=== PATIENT | female | born 1995 | race Caucasian/White ===

== ENCOUNTER → 2016-11-01 | Outpatient (CLI) | payer BC ==
--- NOTE | 2016-11-01 23:51 | MR ---
History pain and swelling. Limited range of motion. Comparison none. TECHNIQUE: Multiplanar multiecho imaging of the left wrist was performed with no contrast. Findings. The carpal bones have normal signal pattern. There is no evidence of edema. Distal radius and ulna ar e intact. Condylar cartilage appears normal. The proximal metacarpals appear intact. The flexor and e xtensor tendons of the wrist appear intact. There is no pathologic fluid collection in the soft tissu es. I see no focal bony destructive process. There is slight prominence of the synovial fluid of the wrist joint and carpal bones. CONCLUSION: No fracture. Normal joint spaces. No focal soft tissue abnormality seen. There is possibly slight inc reased synovial fluid could relate to mild synovitis.
== END | disposition home or self-care (01) ==
LOC: RADMRIMAIN 17:06
PROVIDERS: ATTEND Orthopaedic Surgery
DX: M25.532 Pain in left wrist (principal)

== ENCOUNTER 2018-12-20 10:01 | Emergency (ER) | payer BC ==
[2018-12-20] MEDS ORDERED: ACETAMINOPHEN TAB 325 MG TAB PO STA (10:37)
--- NOTE | 2018-12-20 10:38 | ED ---
General Adult HPI - General Chief complaint: Chest Pain Stated complaint: chest pain, palpitations Time Seen by Provider: 12/20/18 10:09 Source: patient, RN notes reviewed Mode of arrival: wheelchair Limitations: no limitations - History of Present Illness Initial comments: 22-year-old female presents to the emergency department for a chief complaint of chest pain times one day. Patient states this started last night. Patient states she has had a productive cough with clear mucus for the past 2 weeks. She states she has had significant amount of congestion as well. Patient denies fevers or chills. She states that yesterday she started to feel like her heart was racing. Patient does state the pain is worse when coughing. She also states it is worse when she takes a deep breath. Patient also states she has had a baseline mild shortness of breath since she has become sick. Patient has no other complaints at this time including abdominal pain, nausea or vomiting, headache, or visual changes. - Related Data Home Medications Medication Instructions Recorded Confirmed Ascorbic Acid [Vitamin C] 1,000 mg PO DAILY 12/20/18 12/20/18 Cholecalciferol [Vitamin D3] 400 unit PO DAILY 12/20/18 12/20/18 Multivitamins, Thera [Multivitamin 1 tab PO DAILY 12/20/18 12/20/18 (formulary)] Previous Rx's Medication Instructions Recorded predniSONE 50 mg PO DAILY #5 tablet 12/20/18 Allergies Allergy/AdvReac Type Severity Reaction Status Date / Time No Known Allergies Allergy Verified 12/20/18 11:00 Review of Systems ROS Statement: Those systems with pertinent positive or pertinent negative responses have been documented in the HPI. ROS Other: All systems not noted in ROS Statement are negative. Past Medical History Past Medical History: No Reported History History of Any Multi-Drug Resistant Organisms: None Reported Past Surgical History: No Surgical Hx Reported Past Psychological History: No Psychological Hx Reported Smoking Status: Never smoker Past Alcohol Use History: None Reported Past Drug Use History: None Reported General Exam Limitations: no limitations General appearance: alert, in no apparent distress Head exam: Present: atraumatic, normocephalic, normal inspection Eye exam: Present: normal appearance, PERRL, EOMI. Absent: scleral icterus, conjunctival injection, periorbital swelling ENT exam: Present: normal exam, mucous membranes moist Neck exam: Present: normal inspection, full ROM. Absent: tenderness, meningismus, lymphadenopathy Respiratory exam: Present: normal lung sounds bilaterally, chest wall tenderness (significant chest wall tenderness, ). Absent: respiratory distress, wheezes, rales, rhonchi, stridor Cardiovascular Exam: Present: regular rate, normal rhythm, normal heart sounds. Absent: systolic murmur, diastolic murmur, rubs, gallop, clicks Neurological exam: Present: alert, oriented X3, CN II-XII intact Psychiatric exam: Present: normal affect, normal mood Course Vital Signs 12/20/18 12/20/18 12/20/18 10:05 11:17 11:20 Temperature 98.4 F 97.2 F L Pulse Rate 98 87 Respiratory 18 16 Rate Blood Pressure 147/103 114/71 O2 Sat by Pulse 98 92 L 98 Oximetry EKG Findings - EKG Comments: EKG Findings:: Normal sinus rhythm, ventricular rate 90, WV interval 134, QTC 408 Medical Decision Making - Medical Decision Making 22-year-old female presents to the emergency department for a chief complaint of pleuritic chest pain. Pain is worsened when coughing and taking a deep breath. Patient states it is also worse when pressing on the chest. Exam reveals no murmurs. Pain is reproducible. Chest x-ray shows no acute process. Influenza is negative. Although I suspect chest pain is related to pleurisy as patient has been coughing as well as chest wall pain given that pain is reproducible to palpation I did draw a d-dimer as pain is pleuritic in nature. This is negative. EKG does not show any abnormalities. At this time patient will be treated for bronchitis. She will be given steroids. She will take Motrin for pain. She'll follow up with primary care in 1-2 days or return if she has any worsening symptoms. - Lab Data Lab Results 12/20/18 12/20/18 12/20/18 Range/Units 10:30 10:30 10:30 D-Dimer (<0.60) mg/L FEU Urine Color Yellow Urine Appearance Clear (Clear) Urine pH 5.5 (5.0-8.0) Ur Specific [place] 1.013 (1.001-1.035) Urine Protein Negative (Negative) Urine Glucose (UA) Negative (Negative) Urine Ketones Negative (Negative) Urine Blood Small H (Negative) Urine Nitrite Negative (Negative) Urine Bilirubin Negative (Negative) Urine Urobilinogen <2.0 (<2.0) mg/dL Ur Leukocyte Esterase Negative (Negative) Urine RBC 1 (0-5) /hpf Urine WBC 2 (0-5) /hpf Ur Squamous Epith Cells 2 (0-4) /hpf Urine Bacteria Rare H (None) /hpf Urine Mucus Rare H (None) /hpf Urine HCG, Qual Not Detected (Not Detectd) Influenza Type A RNA Not Detected (Not Detectd) Influenza Type B (PCR) Not Detected (Not Detectd) 12/20/18 Range/Units 11:50 D-Dimer <0.17 (<0.60) mg/L FEU Urine Color Urine Appearance (Clear) Urine pH (5.0-8.0) Ur Specific [place] (1.001-1.035) Urine Protein (Negative) Urine Glucose (UA) (Negative) Urine Ketones (Negative) Urine Blood (Negative) Urine Nitrite (Negative) Urine Bilirubin (Negative) Urine Urobilinogen (<2.0) mg/dL Ur Leukocyte Esterase (Negative) Urine RBC (0-5) /hpf Urine WBC (0-5) /hpf Ur Squamous Epith Cells (0-4) /hpf Urine Bacteria (None) /hpf Urine Mucus (None) /hpf Urine HCG, Qual (Not Detectd) Influenza Type A RNA (Not Detectd) Influenza Type B (PCR) (Not Detectd) Disposition Clinical Impression: Bronchitis Disposition: HOME SELF-CARE Condition: Good Instructions (If sedation given, give patient instructions): Chest Pain (ED), Acute Bronchitis (ED) Additional Instructions: Please take steroid as directed. Continue to take Motrin. Please follow-up with primary care in 1-2 days. Please return here to the emergency department if you have any worsening symptoms. Prescriptions: predniSONE 50 mg PO DAILY #5 tablet Is patient prescribed a controlled substance at d/c from ED?: No Referrals: Hammad Tapia MD [Primary Care Provider] - 1-2 days Time of Disposition: 12:53
[2018-12-20 10:52] LABS: Appearance,Urine Clear (Clear); Bacteria,Urine Rare /hpf; Bilirubin,Urine Negative (Negative); Blood,Urine Small (Negative); Color,Urine Yellow; Glucose,Urine (UA) Negative (Negative); Ketones,Urine Negative (Negative); Leukocyte Esterase,Urine Negative (Negative); Mucus,Urine Rare /hpf; Nitrite,Urine Negative (Negative); PH, Urine 5.5 (5.0-8.0); Protein,Urine Negative (Negative); RBC,Urine 1 /hpf (0-5); Specific Gravity,Urine 1.013 (1.001-1.035); Squamous Epithelial Cell,Urine 2 /hpf (0-4); Urobilinogen,Urine <2.0 mg/dL (<2.0); WBC,Urine 2 /hpf (0-5)
[2018-12-20] MEDS ORDERED: IBUPROFEN 600 MG TAB PO STA (10:56)
[2018-12-20] MEDS ORDERED: predniSONE 50 MG TAB PO STA (10:56)
--- NOTE | 2018-12-20 11:12 | XR ---
EXAMINATION TYPE: XR chest 2V DATE OF EXAM: 12/20/2018 COMPARISON: NONE HISTORY: Chest pain for 24 hours. TECHNIQUE: Frontal and lateral views of the chest are obtained. FINDINGS: There is no focal air space opacity, pleural effusion, or pneumothorax seen. The cardiac silhouette size is within normal limits. The osseous structures are intact. IMPRESSION: No acute process.
[2018-12-20 13:26] VITALS: BP 116/72; PULSE 84; RESP 18; TEMP 98
== END 2018-12-20 13:24 | disposition home or self-care (01) ==
LOC: EC 10:01
DX: J40 Bronchitis, not specified as acute or chronic (principal)
CPT/HCPCS: 36415; 93005; 85379; 81001; 81025; 87502; 71046; 99284; J7512

== ENCOUNTER → 2020-04-21 | Outpatient (CLI) | payer OTHER ==
[2020-04-21 12:55] VITALS: BP 118/83; PULSE 83; RESP 18; TEMP 98.2
--- NOTE | 2020-04-21 14:12 | P.HPOB ---
History of Present Illness H&P Date: 04/21/20 Chief Complaint: Patient is here for her routine gynecologic exam. This is a 24-year-old G0 with an LMP of 03/30/2020. The patient is here to establish with this office. She has a ParaGard IUD in place which was inserted in 2009. She states she has done well with this IUD for control. Menses are regular every month with 2 days of slightly heavier flow where she changes her protection up to every 2 hours. She did donate eggs up to 2018 and did this for about 2 years. She did take ovarian stimulation medications at that time and did have a transvaginal egg retrievals. She has been experiencing some constipation and some bloating. She is concerned about the possibility of ovarian cancer since a [id number]-cv-nve recently was diagnosed with ovarian cancer at a relatively young age. She states she does feel cold at times and also has been having some weight fluctuations of plus or minus 10-15 pounds. Review of Systems Her weight has fluctuated by 10-15 pounds and has ranged from 162-180 in recent months. She denies respiratory or cardiac problems. GI: Constipation. 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 She states she believes she did complete the HPV vaccination series. History of Any Multi-Drug Resistant Organisms: None Reported Past Surgical History: Orthopedic Surgery Additional Past Surgical History / Comment(s): Wrist surgery. Past Psychological History: No Psychological Hx Reported Smoking Status: Never smoker Past Alcohol Use History: Occasional (0-2 per month) Past Drug Use History: None Reported Additional History: The patient is single and has been with her boyfriend since 2012. She does live with him. 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 - Past Family History Mother Family Medical History: Hyperlipidemia, Hypertension Additional Family Medical History / Comment(s): Great-grandmother had breast cancer. Father Family Medical History: Diabetes Mellitus, Hyperlipidemia, Hypertension Medications and Allergies Home Medications Medication Instructions Recorded Confirmed Type Cholecalciferol [Vitamin D3] 400 unit PO DAILY 12/20/18 04/21/20 History Multivitamins, Thera [Multivitamin 1 tab PO DAILY 12/20/18 04/21/20 History (formulary)] Allergies Allergy/AdvReac Type Severity Reaction Status Date / Time latex AdvReac Itching Unverified 04/21/20 12:49 Exam Vital Signs Temp Pulse Resp BP Pulse Ox 04/21/20 12:52 98.2 F 83 18 118/83 99 Intake and Output 04/20/20 04/21/20 04/21/20 22:59 06:59 14:59 Other: Weight 77.111 kg Height 5 feet 4 inches, weight 170 pounds, BMI 29.2. This is a well-developed well-nourished white female who is alert and oriented times 3 in no acute distress. HEENT: Within normal limits. NECK: Supple without mass or thyromegaly. CHEST AND LUNGS: Clear to auscultation. HEART: Regular rate and rhythm. BREASTS: Are without mass or discharge. AXILLARY EXAM: Negative for adenopathy. BACK: Negative for CVA tenderness. ABDOMEN: Soft, minimal epigastric tenderness, without palpable masses. The abdomen is nondistended. PELVIC EXAM: Normal external genitalia. Cervix and vagina appear normal. An IUD string protrudes from the cervix by approximately 2 cm. There is no cervical motion tenderness. There is no unusual discharge. There is no evidence of prolapse. The uterus is midposition, nongravid size and nontender. There are no palpable adnexal masses or tenderness. RECTAL EXAM: Deferred. EXTREMITIES: Nontender. IMPRESSION: 1. 24-year-old female with normal gynecologic exam. 2. Recent abdominal bloating. This most likely represents GI changes such as GI gas or constipation. Less likely would be ovarian neoplasm as a cause for the abdomen. PLAN: 1. Pap smear was performed. 2. Self breast awareness was discussed with the patient. 3. The patient is interested in having a thyroid blood test for screening since she has experience some weight fluctuations, some cold intolerance and constipation. 4. Pelvic ultrasound will be scheduled because of the abdominal bloating and her anxiety regarding ovarian cancer. The order slip was given to the patient for this. 5. She understands her ParaGard is recommended to be replaced after 10 years of use. We discussed different options including control pills as well as different types of IUDs. She is interested in a progestin coated IUD because of slightly heavier periods on days 3 and 4. The patient will be referred to Dr. Carter for IUD replacement with a Mirena IUD. 6. She was advised to return in one year for her annual well woman exam.
--- NOTE | 2020-04-28 18:07 | P.PN ---
Progress Note - Text Progress Note Date: 04/28/20 OUTPATIENT FOLLOW-UP NOTE TEST(S)/RESULTS: Pap smear from 04/21/2020 was negative. METHOD OF NOTIFICATION: A message with this result was left on the patient's voicemail. PATIENT COMMENTS: DIAGNOSIS: Negative Pap smear. DISCUSSION: The patient was asked to call to make an appointment for the re commended pelvic ultrasound. She was also advised to have the TSH blood test drawn. She was also instructed to call if she has questions about these tests. PLAN: As above.
== END | disposition home or self-care (01) ==
LOC: WWCWWP 12:23
PROVIDERS: ATTEND Obstetrics & Gynecology
DX: Z53.9 Procedure and treatment not carried out, unspecified reason (principal)

== ENCOUNTER → 2021-05-05 | Outpatient (CLI) | payer OTHER ==
[2021-05-05 10:15] VITALS: BP 114/78; PULSE 90; RESP 16; TEMP 97.9
--- NOTE | 2021-05-05 11:18 | P.HPOB ---
History of Present Illness H&P Date: 05/05/21 Chief Complaint: The patient is here for her routine gynecologic exam. This is a 25-year-old G0 with an LMP of 04/05/2021. The patient has a ParaGard IUD in place which she states was inserted in 2009. She did see Dr. Carter regarding changing the IUD and his plan was to insert a Kyleena IUD. She was instructed to make an appointment on her menstrual period, but she did not do this. She is without gynecologic complaints. 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 I had previously recommended a pelvic ultrasound because of the abdominal bloating that she was having. She did not have it done. She still has occasional bloating and constipation. She thinks the bloating seems to be worse when she eats dairy products and therefore thinks she may have some lactose intolerance. Review of Systems The patient has gained 10 pounds over the last year. She denies respiratory problems. Cardiac: Occasional palpitation. GI: Occasional constipation and bloating as in the HPI. 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 She states she believes she did complete the HPV vaccination series. History of Any Multi-Drug Resistant Organisms: None Reported Past Surgical History: Orthopedic Surgery Additional Past Surgical History / Comment(s): Wrist surgery. Past Psychological History: No Psychological Hx Reported Smoking Status: Never smoker Past Alcohol Use History: Occasional Past Drug Use History: None Reported - Past Family History Mother Family Medical History: Hyperlipidemia, Hypertension Additional Family Medical History / Comment(s): Great-grandmother had breast cancer. Father Family Medical History: Diabetes Mellitus, Hyperlipidemia, Hypertension Medications and Allergies Home Medications Medication Instructions Recorded Confirmed Type Cholecalciferol [Vitamin D3] 400 unit PO DAILY 12/20/18 05/05/21 History Multivitamins, Thera [Multivitamin 1 tab PO DAILY 12/20/18 05/05/21 History (formulary)] Ascorbic Acid [Vitamin C] 1,000 mg PO DAILY 05/05/21 05/05/21 History Allergies Allergy/AdvReac Type Severity Reaction Status Date / Time Penicillins Allergy Unknown Unverified 05/05/21 10:16 Childhood latex AdvReac Itching Unverified 05/05/21 10:16 Exam Vital Signs Temp Pulse Resp BP Pulse Ox 05/05/21 10:10 97.9 F 90 16 114/78 100 Intake and Output 05/04/21 05/05/21 05/05/21 22:59 06:59 14:59 Other: Weight 81.647 kg Height 5 feet 3 inches, weight 180 pounds, BMI 31.4. This is a well-developed well-nourished white female who is alert and oriented times 3 in no acute distress. HEENT: Within normal limits. NECK: Supple without mass or thyromegaly. CHEST AND LUNGS: Clear to auscultation. HEART: Regular rate and rhythm. BREASTS: Are without mass or discharge. AXILLARY EXAM: Negative for adenopathy. BACK: Negative for CVA tenderness. ABDOMEN: Soft, nontender, without palpable masses. PELVIC EXAM: Normal external genitalia. Cervix and vagina appear normal. The IUD string protrudes from the cervix by about 1.5 cm. There is no unusual discharge. There is no cervical motion tenderness. There is no evidence of prolapse. The uterus is midposition, nongravid size and nontender. There are no palpable adnexal masses or tenderness. RECTAL EXAM: Deferred. EXTREMITIES: Nontender. IMPRESSION: 1. 25-year-old female with ParaGard IUD in place with normal gynecologic exam. 2. Contemplating attempting in the next 2 years. 3. Intermittent bloating with history of ovulation induction when she was an egg donor. This may slightly increase the risk for ovarian cancer. PLAN: 1. Pap smear was deferred since she had a normal one on 04/21/2020. 2. Self breast awareness was discussed with the patient. 3. I have recommended that she have a pelvic ultrasound done because of her bloating symptoms and history of ovulation induction. The order slip was given to the patient. 4. We have discussed control options and since she is talking about trying to get in the relatively near future, inserted a new IUD may not be the best option. We have discussed how her ParaGard IUD probably still has contraception effects after 10 years, but may be decreased compared to the first 10 years of use. We have also discussed the option of going on control pills until she wants to attempt . She will let me know when she wants me to remove the ParaGard IUD. I have also recommended that she take a daily multivitamin with folic acid. 5. She was advised to return in one year for her annual well woman exam and as needed.
== END ==
LOC: WWCWWP 10:05
PROVIDERS: ATTEND Obstetrics & Gynecology
DX: Z53.9 Procedure and treatment not carried out, unspecified reason (principal)

== ENCOUNTER → 2022-07-27 | Outpatient (CLI) | payer OTHER ==
[2022-07-27 11:33] VITALS: BP 127/84; PULSE 94; RESP 17; TEMP 98.3
--- NOTE | 2022-07-27 12:34 | P.HPOB ---
History of Present Illness H&P Date: 07/27/22 Chief Complaint: The patient is here for her routine gynecologic exam. This is a 26-year-old G0 with an LMP of 07/22/2022. The patient presented with a ParaGard IUD in place. She would like to attempt in the upcoming year and is requesting to have the IUD removed. She states she has not had any problems with the ParaGard IUD. Menstrual periods have been regular every month with normal flow. I had previously recommended a pelvic ultrasound because of abdominal bloating. She states she is not having any unusual bloating, but she does have occasional constipation. She does have bowel movements at least every 2 days typically. Review of Systems She has lost 2 pounds over the past year. She denies respiratory or cardiac problems. GI: Occasional constipation. 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 She states she believes she did complete the HPV vaccination series. History of Any Multi-Drug Resistant Organisms: None Reported Past Surgical History: Orthopedic Surgery Additional Past Surgical History / Comment(s): Wrist surgery. Past Psychological History: No Psychological Hx Reported Smoking Status: Never smoker Past Alcohol Use History: Occasional (0-2 per month) Past Drug Use History: None Reported Additional History: She is single and has been with her boyfriend since 2012. They live together. 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 - Past Family History Mother Family Medical History: Hyperlipidemia, Hypertension Additional Family Medical History / Comment(s): Kidney stones. Great-grandmother had breast cancer. She denies known family history of defects or mental retardation. Father Family Medical History: Diabetes Mellitus, Hyperlipidemia, Hypertension Additional Family Medical History / Comment(s): Kidney stones. Medications and Allergies Home Medications Medication Instructions Recorded Confirmed Type Cholecalciferol [Vitamin D3] 400 unit PO DAILY 12/20/18 07/27/22 History Multivitamins, Thera [Multivitamin 1 tab PO DAILY 12/20/18 07/27/22 History (formulary)] Ascorbic Acid [Vitamin C] 1,000 mg PO DAILY 05/05/21 07/27/22 History Allergies Allergy/AdvReac Type Severity Reaction Status Date / Time Penicillins Allergy Unknown Unverified 07/27/22 11:23 Childhood latex AdvReac Itching Unverified 07/27/22 11:23 Exam Vital Signs Temp Pulse Resp BP Pulse Ox 07/27/22 11:31 98.3 F 94 17 127/84 98 Intake and Output 07/26/22 07/27/22 07/27/22 22:59 06:59 14:59 Other: Weight 80.739 kg Height 5 feet 3 inches, weight 178 pounds, BMI 31.5. This is a well-developed well-nourished white female who is alert and oriented times 3 in no acute distress. HEENT: Within normal limits. NECK: Supple without mass or thyromegaly. CHEST AND LUNGS: Clear to auscultation. HEART: Regular rate and rhythm. BREASTS: Are without mass or discharge. AXILLARY EXAM: Negative for adenopathy. BACK: Negative for CVA tenderness. ABDOMEN: Soft, nontender, without palpable masses. PELVIC EXAM: Normal external genitalia. Cervix and vagina appear normal. The IUD string protruded from the cervix approximately 2 cm. There is no unusual discharge. There is no evidence of prolapse. The uterus is midposition, nongravid size and nontender. There are no palpable adnexal masses or tenderness. RECTAL EXAM: Deferred. EXTREMITIES: Nontender. Procedure: The patient requested removal of her IUD since she does want to attempt in the upcoming year. We discussed possible risks including unpredictable bleeding, or infrequently laceration of the uterus or cervix. All questions were answered. The IUD was removed without difficulty. The patient tolerated the procedure well. There was minimal blood loss. IMPRESSION: 1. 26-year-old female who has done well with a ParaGard IUD, status post IUD removal today and plans to attempt in the near future. 2. Normal gynecologic exam. PLAN: 1. Pap smear was performed. This will be cytology only. 2. Self breast awareness was discussed with the patient. We have also discussed symptoms associated with inflammatory breast cancer. 3. I have recommended that she avoid until she has had a normal menstrual period. She states she will plan to use condoms until then and until she wants to actively attempt . Preconception planning was discussed. I have stressed the importance of continuing a daily multivitamin with folic acid she will keep a menstrual calendar. If she does miss a period, she will take a test and be careful with intake of alcohol and medications. 4. We have discussed the importance of adequate fiber to help prevent problems with constipation. 5. She was advised to return in one year for her annual well woman exam. She'll also call if problems or if . She was also instructed to call if she desires to be restarted on control such as oral contraception.
== END | disposition home or self-care (01) ==
LOC: WWCWWP 11:18
PROVIDERS: ATTEND Obstetrics & Gynecology
DX: Z53.9 Procedure and treatment not carried out, unspecified reason (principal)

== ENCOUNTER → 2023-08-08 | Outpatient (CLI) | payer OTHER ==
[2023-08-08 13:45] VITALS: BP 119/85; PULSE 86; RESP 17; TEMP 98.2
--- NOTE | 2023-08-08 16:48 | P.HPOB ---
History of Present Illness H&P Date: 08/08/23 Chief Complaint: The patient is to for her routine gynecologic exam. This is a 27-year-old G0 with an LMP of 07/12/2023. The patient had her IUD removed last year since she was planning to attempt . She and her boyfriend have been using withdrawal for control since they currently do not want to actively attempt . She was diagnosed with MS during the past year and is now taking Kesimpta injections. She is without gynecologic complaints. Her last Pap smear on 07/27/2022 showed ASCUS. The plan was to repeat the Pap smear after 1 year. Review of Systems Weight has been stable. She denies respiratory, cardiac, or GI problems. Neurologic: She has had been having various neurologic symptoms including lower body paresthesias. She since has been diagnosed with MS and her current medication seems to help with some of the symptoms Past Medical History Past Medical History: Musculoskeletal Disorder, Neurologic Disorder Additional Past Medical History / Comment(s): Multiple sclerosis. 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 She states she believes she did complete the HPV vaccination series. History of Any Multi-Drug Resistant Organisms: None Reported Past Surgical History: Orthopedic Surgery Additional Past Surgical History / Comment(s): Wrist surgery. Past Psychological History: Anxiety Smoking Status: Never smoker Past Alcohol Use History: None Reported Past Drug Use History: None Reported Additional History: She is single and has been with her boyfriend since 2012. They live together. She is currently unemployed and was on a prolonged medical leave because of her multiple sclerosis diagnosis. - Past Family History Mother Family Medical History: Hyperlipidemia, Hypertension Additional Family Medical History / Comment(s): Kidney stones. Psoriatic arthritis. Great-grandmother had breast cancer. She denies known family history of defects or mental retardation. Father Family Medical History: Diabetes Mellitus, Hyperlipidemia, Hypertension Additional Family Medical History / Comment(s): Kidney stones. Medications and Allergies Home Medications Medication Instructions Recorded Confirmed Type Cholecalciferol [Vitamin D3] 400 unit PO DAILY 12/20/18 08/08/23 History Baclofen [Lioresal] 20 mg PO TID 08/08/23 08/08/23 History Docusate [Colace] 100 mg PO DIRECTED PRN 08/08/23 08/08/23 History Gabapentin 600 mg PO TID 08/08/23 08/08/23 History Magnesium 250 mg PO DAILY 08/08/23 08/08/23 History Ofatumumab [Kesimpta Pen] 1 injection INJ QMONTHLY 08/08/23 08/08/23 History Vitamin B Complex 1 cap PO DAILY 08/08/23 08/08/23 History Allergies Allergy/AdvReac Type Severity Reaction Status Date / Time Penicillins Allergy Unknown Unverified 08/08/23 13:26 Childhood latex AdvReac Itching Unverified 08/08/23 13:26 Exam Vital Signs Temp Pulse Resp BP Pulse Ox 08/08/23 13:32 98.2 F 86 17 119/85 97 Intake and Output 08/08/23 08/08/23 08/08/23 06:59 14:59 22:59 Other: Weight 79.832 kg Height 5 feet 3 inches, weight 176 pounds, BMI 31.2. This is a well-developed well-nourished white female who is alert and oriented times 3 in no acute distress. HEENT: Within normal limits. NECK: Supple without mass or thyromegaly. CHEST AND LUNGS: Clear to auscultation. HEART: Regular rate and rhythm. BREASTS: Are without mass or discharge. AXILLARY EXAM: Negative for adenopathy. BACK: Negative for CVA tenderness. ABDOMEN: Soft, nontender, without palpable masses. PELVIC EXAM: Normal external genitalia. Cervix and vagina appear normal, but there are 2 mucosal growths in the left fornix between the vaginal wall and the base of the cervix. One measures approximately 1 x 1 cm and the other one slightly posterior to the first measures approximately 7 x 7 mm. They are at approximately the 1:00 and 2:00 positions of the cervix. A have a benign appearance and are mobile on a stalk. There color a similar to the surrounding vaginal mucosa. There is no unusual discharge. There is no evidence of prolapse. The uterus is midposition, nongravid size and nontender. There are no palpable adnexal masses or tenderness. RECTAL EXAM: Deferred. EXTREMITIES: Nontender. IMPRESSION: 1. 27-year-old female with pericervical mucosal growths measuring approximately 1 cm and 7 mm. Differential diagnosis will include benign mucosal growths as well as condyloma. 2. The patient is currently using withdrawal for control. 3. Recent diagnosis of multiple sclerosis and is currently on Kesimpta. 4. Her plans on possibly attempting have been put on hold because of her diagnosis of multiple sclerosis. 5. Previous Pap smear showed ASCUS. PLAN: 1. Pap smear cotest was performed. 2. Self breast awareness was discussed. 3. We have had a long discussion regarding possibly attempting in the future. Her diagnosis of multiple sclerosis with her current medication now complicates her decision of whether to attempt . We have discussed how the medication has some potential risks and the recommendation is to actively prevent for at least 6 months after the medication is discontinued. I recommended that she actively prevent and we have discussed possible options including going back on the IUD or starting oral contraception. At this time I have recommended at least using condoms every single time. She states she will consider these options. 4. If the Pap smear is abnormal, we may be referring her for colposcopic examination of the cervix. If that is the case we can also ask the person who will do the colposcopy possibly remove the pericervical growths. If Pap smear is negative and if colposcopy is not indicated, we will consider setting up a time for the removal of the growths or at least biopsying the growths. 5. I have recommended taking a daily multivitamin with folic acid as well as considering more effective options for control. She should take whatever precautions are necessary to avoid at this time. 6. We have also discussed possible preconception options such as referral to a perinatologist to further discuss possible in the future with her multiple sclerosis diagnosis and medications used for multiple sclerosis. She will consider this. 7. She is also asking whether Kesimpta increases the risk for breast cancer and should breast cancer screening be started earlier in her situation. I am not fully aware of the risks with breast cancer. We have discussed how medications that affect the immune system may affect the body's ability to fight or prevent cancers. She can asked this question to the neurologist who is prescribing medication. 8. She was advised to return in one year for her annual well woman exam and as needed.
== END ==
LOC: WWCWWP 13:19
PROVIDERS: ATTEND Obstetrics & Gynecology
DX: G35 Multiple sclerosis (principal); Z80.3 Family history of malignant neoplasm of breast; Z88.0 Allergy status to penicillin; Z87.39 Personal history of other diseases of the musculoskeletal system and connective tissue; Z86.69 Personal history of other diseases of the nervous system and sense organs; Z91.040 Latex allergy status; Z79.899 Other long term (current) drug therapy

== ENCOUNTER → 2023-09-13 | Day surgery (SDC) | payer OTHER ==
[2023-09-13 12:40] VITALS: BP 124/82; PULSE 89; RESP 18; TEMP 98.3
--- NOTE | 2023-09-13 13:40 | P.PCN ---
Date of Procedure: 09/13/23 Preoperative Diagnosis: Pericervical vaginal growths Postoperative Diagnosis: Same Procedure(s) Performed: Removal of the pericervical vaginal growths Anesthesia: none Surgeon: Ashutosh Campbell Estimated Blood Loss (ml): 1 Pathology: other (Pericervical vaginal growths(2)) Condition: stable Disposition: same day Indications for Procedure: This was a 27-year-old female who was found to have 2 small growths in the left vaginal fornix at the base of the cervix on her routine gynecologic exam. Operative Findings: There were 2 mucosal growths in the left vaginal fornix at the base of the cervix. One was at the 2 o'clock position and measured approximately 1 x 1 cm. The second one was at the 3 o'clock position and measured approximately 7 x 7 mm. Description of Procedure: We had a discussion regarding the procedure and this included possible risks and complications. These included the possibility of bleeding, infection and damage to surrounding structures. All questions were answered. The patient did have a question about possible vaginal prolapse since she notices slight bulge at the vaginal opening when she was having a bowel movement. The preprocedure vital signs were: The pressure 124/82, height 5 feet 4 inches, weight 173 pounds, temperature 98.3, pulse 89, and pulse oximeter was 100%. The patient was initially examined further evaluate the possible prolapse. There is no evidence of cystocele or uterine prolapse. There is a very slight rectal bulge in the vagina consistent with a grade 1 rectocele. The uterus is mid positioned, nongravid size, and nontender. There are no palpable adnexal masses or tenderness. Rectal exam did confirm a very small rectocele. My gloves were changed and attention was then turned to the procedure. The patient was in the lithotomy position and a speculum was inserted into the vagina. The growths in the left vaginal fornix were again seen. The cervix and vagina were prepped with Betadine solution. A posterior forcep was then used to grasp the larger growth at the 2 o'clock position and this was excised at its base without difficulty. The smaller lesion at the 3 o'clock position was also excised in a similar fashion. There was small bleeding from the sites that were made hemostatic with a silver nitrate stick and a small amount of Monsel's solution. The patient tolerated the procedure well. This measured blood loss was 1 mL. The post procedure blood pressure was 135/85. Pulse was 89 and the pulse oximeter was 99%. The patient was discharged home in stable condition. The patient was instructed to call if problems such as heavy vaginal bleeding, unusual pain, fever, or problems. The 2 specimens were sent separately for pathological evaluation. The patient was also instructed to avoid all sexual activity for 2 weeks and until all bleeding and discharge has stopped. She was also advised not to run for exercise at this time. We have discussed the small rectocele. I recommended that she avoid holding stool longer than necessary and she should also avoid constipation and bearing down, if possible. The ACOG FAQ handout on pelvic relaxation was given to the patient. No intervention is needed at this time.
--- NOTE | 2023-09-19 14:03 | P.PN ---
Progress Note - Text Progress Note Date: 09/19/23 OUTPATIENT FOLLOW-UP NOTE TEST(S)/RESULTS: Pathology results from the posterior vaginal growths revealed 2 benign fibroepithelial polyps. METHOD OF NOTIFICATION: A message with this result was left on the patient's voicemail. PATIENT COMMENTS: DIAGNOSIS: Benign fibroepithelial vaginal polyps. DISCUSSION: The patient was instructed to call if she has any questions or if she had any issues following the procedure. PLAN: As above.
== END ==
LOC: WWCWWP 11:55
PROVIDERS: ATTEND Obstetrics & Gynecology
DX: N84.2 Polyp of vagina (principal)
CPT/HCPCS: 57100; 57135; 88305

== ENCOUNTER → 2024-08-28 | Outpatient (CLI) | payer OTHER ==
[2024-08-28 11:27] VITALS: BP 117/80; PULSE 95; RESP 17; TEMP 98.6
--- NOTE | 2024-08-28 14:09 | P.HPOB ---
History of Present Illness H&P Date: 08/28/24 Chief Complaint: Patient is here for her routine gynecologic exam. This is a 36-year-old G0 with an LMP of 08/21/2024. Patient had a ParaGard IUD removed in 2021 and was planning to attempt . She has been treated for MS and is no longer wanting to get at this time. She has also been having relationship problems. She had found out that her boyfriend was unfaithful. She states she had STD testing [facility] and this was negative. She states that the boyfriend that was unfaithful and is trying to get back together with her. She is torn about what to do and has concerns regarding issues of trust. She is interested in getting an IUD reinserted since she does not want to get at this time. She denies any unusual vaginal discharge or odor. She did have an ASCUS Pap smear in 2021. Pap smear cotest on 08/08/2023 was negative. Review of Systems The patient has lost 7 pounds over the last year. She denies respiratory, cardiac, or G.I. problems. Past Medical History Past Medical History: Musculoskeletal Disorder, Neurologic Disorder Additional Past Medical History / Comment(s): Multiple sclerosis. 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 She states she believes she did complete the HPV vaccination series. History of Any Multi-Drug Resistant Organisms: None Reported Past Surgical History: Orthopedic Surgery Additional Past Surgical History / Comment(s): Wrist surgery. Past Psychological History: Anxiety Smoking Status: Never smoker Past Alcohol Use History: Rare (3 drinks per year.) Past Drug Use History: None Reported Additional History: She is single and had been with her boyfriend since 2012, but in 2023 they have been because she found out he was unfaithful. She is currently unemployed. - Past Family History Mother Family Medical History: Hyperlipidemia, Hypertension Additional Family Medical History / Comment(s): Kidney stones. Psoriatic arthritis. Great-grandmother had breast cancer. She denies known family history of defects or mental retardation. Father Family Medical History: Diabetes Mellitus, Hyperlipidemia, Hypertension Additional Family Medical History / Comment(s): Kidney stones. Medications and Allergies Home Medications Medication Instructions Recorded Confirmed Type Cholecalciferol [Vitamin D3] 400 unit PO DAILY 12/20/18 08/28/24 History Baclofen [Lioresal] 20 mg PO TID 08/08/23 08/28/24 History Magnesium 250 mg PO DAILY 08/08/23 08/28/24 History Ofatumumab [Kesimpta Pen] 1 injection INJ QMONTHLY 08/08/23 08/28/24 History Vitamin B Complex 1 cap PO DAILY 08/08/23 08/28/24 History Pregabalin 150 mg PO BID 08/28/24 08/28/24 History Allergies Allergy/AdvReac Type Severity Reaction Status Date / Time adhesive tape Allergy Rash/Hives Unverified 08/28/24 11:22 Penicillins Allergy Unknown Unverified 08/28/24 11:22 Childhood latex AdvReac Itching Unverified 08/28/24 11:22 Exam Vital Signs Temp Pulse Resp BP Pulse Ox 08/28/24 11:23 98.6 F 95 17 117/80 96 Intake and Output 08/27/24 08/28/24 08/28/24 22:59 06:59 14:59 Other: Weight 76.657 kg Height 5 feet 3 inches, weight 169 pounds, BMI 29.9. This is a well-developed well-nourished white female who is alert and oriented times 3 in no acute distress. HEENT: Within normal limits. NECK: Supple without mass or thyromegaly. CHEST AND LUNGS: Clear to auscultation. HEART: Regular rate and rhythm. BREASTS: Are without mass or discharge. AXILLARY EXAM: Negative for adenopathy. BACK: Negative for CVA tenderness. ABDOMEN: Soft, nontender, without palpable masses. PELVIC EXAM: Normal external genitalia. Cervix and vagina appear normal. There is no unusual discharge. There is no evidence of prolapse. The uterus is midposition, nongravid size and nontender. There are no palpable adnexal masses or tenderness. RECTAL EXAM: negative for mass or tenderness. EXTREMITIES: Nontender. IMPRESSION: 1. 36-year-old female with normal gynecologic exam. 2. History of previous ASCUS Pap smear in 2021 and negative Pap smear cotest on 08/08/2023. PLAN: 1. Pap smear was deferred. We will plan on repeating the Pap smear in 1 to 2 years. 2. Self breast awareness was discussed with the patient. We have also discussed symptoms associated with inflammatory breast cancer. 3. GC and Chlamydia screening was obtained from the cervix. 4. We have had a long discussion regarding STD prevention. I have stressed the importance of limiting sexual partners. I have recommended not being sexually active if she is uncertain if her relationship will be a long-term relationship. She is interested in getting an another IUD. She states she is not interested in hormonal control options such as control pills since she did not feel good when she used them in the past. I have also recommended that she use condoms if she is sexually active. The patient will be referred to Dr. Carter who she has seen in the past. She will discuss the different IUD options with him. 5. Osteoporosis prevention was discussed. 6. She was advised to return in one year for her annual well woman exam and as needed.
== END ==
LOC: WWCWWP 11:06
PROVIDERS: ATTEND Obstetrics & Gynecology
DX: Z01.419 Encounter for gynecological examination (general) (routine) without abnormal findings (principal); Z87.42 Personal history of other diseases of the female genital tract; Z80.3 Family history of malignant neoplasm of breast; Z88.0 Allergy status to penicillin; Z91.048 Other nonmedicinal substance allergy status; Z91.040 Latex allergy status